=== PATIENT | female | born 1950 | race Caucasian/White ===

== ENCOUNTER 2016-04-23 10:23 | Emergency (ER) | payer BC ==
[~2016-04-23] VITALS: Ht 160 cm; Wt 75.0 kg
[2016-04-23 10:29] VITALS: TEMP 97.5
[2016-04-23] MEDS ORDERED: ARICEPT10 MG PO (11:24)
[2016-04-23] MEDS ORDERED: CELEXA 20MG20 MG/TAB PO (11:24)
[2016-04-23] MEDS ORDERED: B-121000 MCG PO (11:25)
[2016-04-23] MEDS ORDERED: NATURAL E400 IU PO (11:25)
[2016-04-23] MEDS ORDERED: VITAMIN D 1001000 IU PO (11:25)
[2016-04-23] MEDS ORDERED: ASPIRIN E.C. 8181 MG PO (11:26)
[2016-04-23] MEDS ORDERED: MULTI VITAMINS1 TAB PO (11:26)
[2016-04-23 12:18] LABS: BASO # 0.1 (0.0-0.2); BASO % 0.7 % (0.0-2.0); EOS # 0.3 (0.0-0.7); EOS % 4.4 % (0-4.0); GRAN # 2.9 (1.4-6.5); HEMATOCRIT 37.1 % (37.0-47.0); HEMOGLOBIN 12.6 g/dl (12.5-16.0); LYMPH # 2.9 (1.2-3.4); LYMPH % 41.6 % (20.0-51.0); MEAN CELL VOLUME 95 fl (80.0-100.0); MEAN CORPUSCULAR HEMOGLOBIN 32 pg (27.0-31.0); MEAN CORPUSCULAR HGB CONC 34 g/dl (33.0-37.0); MEAN PLATELET VOLUME 9.1 fl (7.4-10.4); MONO # 0.8 (0.1-0.6); MONO % 11.2 % (1.7-9.3); PLATELET COUNT 245 K/mm3 (130-400); RED BLOOD COUNT 3.89 M/mm3 (4.10-5.30); REDCELL DISTRIBUTION WIDTH-CV 12.6 % (11.5-14.5); WHITE BLOOD COUNT 6.9 K/mm3 (4.8-10.8)
[2016-04-23 12:40] LABS: ADJUSTED CALCIUM 9.1 mg/dL (8.4-10.2); ALBUMIN 3.8 gm/dL (3.5-5.0); BILIRUBIN,TOTAL 0.6 mg/dL (0.0-1.0); C-REACTIVE PROTEIN 0.6 mg/dL (0.0-0.9); CALCIUM 8.9 mg/dL (8.4-10.2); CREATININE, serum 0.96 mg/dL (0.52-1.25); POTASSIUM 4.2 mmol/L (3.4-5.0); TOTAL PROTEIN 7.1 gm/dL (6.4-8.2)
[2016-04-23 14:29] VITALS: BP 143/91; PULSE 57
== END 2016-04-23 14:30 | disposition home or self-care (01) ==
LOC: COL.ER 10:23
PROVIDERS: Physician Assistant
DX: R51 Headache (principal); F03.90 Unspecified dementia, unspecified severity, without behavioral disturbance, psychotic disturbance, mood disturbance, and anxiety
CPT/HCPCS: J1170; J1200; J1885; J2405; J7030